=== PATIENT | female | born 1975 | race Two or more races ===

== ENCOUNTER 2023-03-03 07:00 | Day surgery (SDC) | payer OTHER | END 2023-03-04 03:30 | disposition home or self-care (01) | LOC: CIR.AMB 07:00 → EDBD 15:15 → CIR.AMB 03-04 03:30 | PROVIDERS: ATTEND Specialist | DX: E65 Localized adiposity (principal); E66.09 Other obesity due to excess calories; Z41.1 Encounter for cosmetic surgery ==